=== PATIENT | female | born 1995 | race Caucasian/White ===

== ENCOUNTER 2018-09-26 12:47 | Day surgery (SDC) | payer BC ==
[2018-09-26] MEDS ORDERED: LIDOCAINE 1% W/EPI 1:200,000 MPF 30ML SQ ONE (12:48)
--- NOTE | 2018-09-27 11:41 | Operative Note ---
DATE OF SURGERY: 09/26/2018 PREOPERATIVE DIAGNOSIS: Painful neoplasm right middle finger. POSTOPERATIVE DIAGNOSIS: Painful neoplasm right middle finger. OPERATION: Excisional biopsy of neoplasm right middle finger. Staff Surgeon: Mckinley Frost MD Anesthesia: Local. Preparation: Chloraprep. Individual Considerations: None. PROCEDURE: The patient was taken to the operating room and placed supine on the operating room table. Her right arm was prepped and draped in the usual fashion. The patient had a palpable lesion in the soft tissue of the middle finger between the PIP and DIP joints directly volarly. A longitudinal incision was made directly over this along the midline. The skin was infiltrated with 1% lidocaine with epinephrine prior. Sharp dissection carried down just through the skin. Once through the skin, there was a probably soft tissue neoplasm within the adipose tissue of the finger. It was right along the midline measuring about 3-4 mm by 3-4 mm. It seemed to be intimately associated with the fat. It was carefully teased out and sent for specimen, and it was yellow and solid. Tourniquet was let down. Hemostasis was obtained with compression after irrigation. The skin was approximated with interrupted 4-0 nylon in a vertical mattress fashion. A sterile bulky compressive dressing was applied. She was taken back to recovery in good condition and there were no complications. SUSAN
== END 2018-09-26 14:40 | disposition home or self-care (01) ==
LOC: SUR 12:47
PROVIDERS: ATTEND Orthopaedic Surgery
DX: D23.61 Other benign neoplasm of skin of right upper limb, including shoulder (principal)
CPT/HCPCS: 81025